=== PATIENT | male | born 1965 | race Hispanic/Latino ===

== ENCOUNTER → 2025-04-04 | Outpatient (CLI) | payer OTHER ==
--- NOTE | 2025-04-04 17:03 | HMCIMG ---
EXAM: US Abdomen complete CLINICAL HISTORY: Unspecified cirrhosis of the liver. He TECHNIQUE: Real-time ultrasound of the abdomen (complete) with image documentation. COMPARISON: None provided. FINDINGS: LIVER: The liver is seen of average size measuring 13.8 cm with coarse heterogeneous echotexture and nodular outline suggesting chronic liver disease/cirrhosis. GALLBLADDER: No gallstone. The gallbladder wall thickness is seen as normal, measuring 3 mm. No pericholecystic fluid. COMMON BILE DUCT: The common bile duct is normal in diameter, measuring 3 mm. PANCREAS: The pancreas is not visualized due to overlying bowel gas. KIDNEYS: Right kidney measures 10.2 x 4.3 x 4.8 cm. Left kidney measures 10.5 x 4.7 x 5.8 cm. No hydronephrosis. SPLEEN: The spleen is seen enlarged, measuring 7.7 x 6.4 x 6.1 cm. AORTA: The aorta is partially visualized due to overlying bowel gas. IVC: The IVC is not visualized due to overlying bowel gas. IMPRESSION: 1. Ultrasound findings consistent with chronic liver disease/cirrhosis, including coarse heterogeneous liver echotexture, nodular hepatic contour, and average liver size measuring 13.8 cm. 2. Splenomegaly, with spleen measuring 7.7 x 6.4 x 6.1 cm. 3. No gallstones, biliary duct dilatation, or pericholecystic fluid. Normal gallbladder wall thickness (3 mm) and common bile duct diameter (3 mm). 4. Kidneys of normal size without hydronephrosis. Right kidney measures 10.2 x 4.3 x 4.8 cm, left kidney measures 10.5 x 4.7 x 5.8 cm. 5. Limited visualization of pancreas, aorta, and IVC due to overlying bowel gas. /[place]
== END | disposition home or self-care (01) ==
LOC: RAH 07:40
PROVIDERS: ATTEND Physical Medicine & Rehabilitation
DX: K74.60 Unspecified cirrhosis of liver (principal); R16.1 Splenomegaly, not elsewhere classified; D64.9 Anemia, unspecified
CPT/HCPCS: 76700